=== PATIENT | female | born 1995 | race Caucasian/White ===

== ENCOUNTER 2017-03-25 07:50 | Emergency (ER) | payer SELFPAY ==
[~2017-03-25] VITALS: Ht 160 cm; Wt 71.0 kg
[2017-03-25 08:01] VITALS: BP 130/80
== END 2017-03-25 10:20 | disposition left against medical advice (07) ==
LOC: ER 08:17
DX: Z53.21 Procedure and treatment not carried out due to patient leaving prior to being seen by health care provider (principal)